=== PATIENT | female | born 1965 | race Caucasian/White ===

== ENCOUNTER 2017-03-08 10:25 | Emergency (ER) | payer MEDICARE ==
--- NOTE | 2017-03-08 10:58 | ER Document Report ---
ED Medical Screen (RME) - General Chief Complaint: Knee Pain Stated Complaint: KNEE PAIN/HEADACHE Time Seen by Provider: 03/08/17 10:40 Notes: Patient is a 51 year old female presenting to the ED for knee pain, migraine and chest pain. Patient fell out of her bed last week on Tuesday, Tuesday, and Tuesday because of night terrors. Patient fell the first time on her left knee and still has pain to this area. Patient has painful ambulation and is using a cane. Patient also has an ongoing issue with her left ankle. Patient also complains of a migraine for the last 2 days. Patient's migraine pain is to the left side but she has new numbness in the left side of her face. Patient also states she has had some chest pain last week which is also a new symptom for her. Patient took ibuprofen and aleve for her knee pain. I have greeted and performed a rapid initial assessment of this patient. A comprehensive ED assessment and evaluation of the patient, analysis of test results and completion of the medical decision making process will be conducted by additional ED providers. - Related Data Allergies/Adverse Reactions: acetaminophen [From Vicodin] Allergy (Verified 03/08/17 10:41) cephalexin [From Keflex] Allergy (Verified 03/08/17 10:30) rash Cephalosporins Allergy (Verified 03/08/17 10:41) divalproex sodium [From Depakote] Allergy (Verified 03/08/17 10:41) hydrocodone [From Vicodin] Allergy (Verified 03/08/17 10:41) propranolol [From Inderal LA] Allergy (Verified 03/08/17 10:41) sumatriptan [From Imitrex] Allergy (Verified 03/08/17 10:29) Tachycardia vancomycin Allergy (Verified 03/08/17 10:29) rash verapamil Allergy (Verified 03/08/17 10:41) Past Medical History - Social History Chew tobacco use (# tins/day): No Frequency of alcohol use: Rare Drug Abuse: Marijuana Renal/ Medical History: Denies: Hx Peritoneal Dialysis Physical Exam - Vital signs Vitals: Temp Pulse Resp BP Pulse Ox 97.9 F 96 18 132/85 H 96 03/08/17 10:30 03/08/17 10:30 03/08/17 10:30 03/08/17 10:30 03/08/17 10:30 - Notes Notes: GENERAL: Alert, wearing sunglasses, interacts well. No acute distress. LUNGS: No respiratory distress. HEART: Regular rate. ABDOMEN: Soft, non-tender. EXTREMITIES: Left knee is tender to palpation along the joint line and popliteal region. Course - Vital Signs Vital signs: Temp Pulse Resp BP Pulse Ox 97.9 F 96 18 132/85 H 96 03/08/17 10:30 03/08/17 10:30 03/08/17 10:30 03/08/17 10:30 03/08/17 10:30 - Laboratory Result Diagrams: 03/08/17 11:14 03/08/17 11:14 Laboratory results interpreted by me: 03/08/17 11:14 MCV 78 L MCH 25.1 L RDW 20.2 H Scribe Documentation - Scribe Written by Scribe:: Colby Padilla, 10:58 acting as scribe for :: Sruaj
[2017-03-08 11:34] LABS: ABSOLUTE EOSINOPHILS # (AUTO) 0.4 10^3/uL (0.0-0.6); ABSOLUTE LYMPHOCYTES (AUTO) 2.7 10^3/uL (0.5-4.7); ABSOLUTE MONOCYTES (AUTO) 0.5 10^3/uL (0.1-1.4); ABSOLUTE NEUT (AUTO) 4.9 10^3/uL (1.7-8.2); BASOPHILS % (AUTO) 0.6 % (0-2); EOSINOPHILS % (AUTO) 4.4 % (0-6); HEMATOCRIT 37.6 % (36.0-47.0); HEMOGLOBIN 12.2 g/dL (12.0-15.5); LYMPHOCYTES % (AUTO) 31.6 % (13-45); MEAN CORPUSCULAR HEMOGLOBIN 25.1 pg (27.0-33.4); MEAN CORPUSCULAR HGB CONC 32.3 g/dL (32.0-36.0); MEAN CORPUSCULAR VOLUME 78 fl (80-97); MONOCYTES % (AUTO) 5.6 % (3-13); RED BLOOD COUNT 4.85 10^6/uL (3.72-5.28); RED CELL DISTRIBUTION WIDTH 20.2 % (11.5-14.0); SEGMENTED NEUTROPHILS % (AUTO) 57.8 % (42-78); WHITE BLOOD COUNT 8.4 10^3/uL (4.0-10.5)
--- NOTE | 2017-03-08 11:40 | RADIOLOGY REPORT (SQ) ---
EXAM DESCRIPTION: CHEST PA/LAT COMPLETED DATE/TIME: 03/08/2017 11:33 am REASON FOR STUDY: CP COMPARISON: None. EXAM PARAMETERS: NUMBER OF VIEWS: two views TECHNIQUE: Digital Frontal and Lateral radiographic views of the chest acquired. RADIATION DOSE: NA LIMITATIONS: none FINDINGS: LUNGS AND PLEURA: No opacities, masses or pneumothorax. No pleural effusion. MEDIASTINUM AND HILAR STRUCTURES: No masses or contour abnormalities. HEART AND VASCULAR STRUCTURES: Heart normal size. No evidence for failure. BONES: No acute findings. HARDWARE: None in the chest. OTHER: No other significant finding. IMPRESSION: NO SIGNIFICANT RADIOGRAPHIC FINDING IN THE CHEST. TECHNICAL DOCUMENTATION: JOB ID: [id number] [employer]- All Rights Reserved
--- NOTE | 2017-03-08 11:41 | RADIOLOGY REPORT (SQ) ---
EXAM DESCRIPTION: KNEE LEFT 3 VIEWS COMPLETED DATE/TIME: 03/08/2017 11:33 am REASON FOR STUDY: Trauma with pain COMPARISON: None. NUMBER OF VIEWS: Three views. TECHNIQUE: AP, lateral, and sunrise patella radiographic images acquired of the left knee. LIMITATIONS: None. FINDINGS: MINERALIZATION: Normal. BONES: No acute fracture or dislocation. No worrisome bone lesions. JOINT: There is a small joint effusion. The joint spaces are normally maintained. SOFT TISSUES: No soft tissue swelling. No radio-opaque foreign body. OTHER: No other significant finding. IMPRESSION: There is a joint effusion with no fracture. If there is clinical concern for internal d erangement, consider MRI. TECHNICAL DOCUMENTATION: JOB ID: [id number] [employer]- All Rights Reserved
[2017-03-08] MEDS ORDERED: NORMAL SALINE 1000 ML 1,000 ML IV ONE (11:45)
[2017-03-08] MEDS ORDERED: PROCHLORPERAZINE EDISYLATE INJ 10 MG/2 ML VIAL IV ONE (11:46)
[2017-03-08] MEDS ORDERED: KETOROLAC TROMETHAMINE INJ/PF 30 MG/1 ML SDV IV ONE (11:46)
[2017-03-08] MEDS ORDERED: ONDANSETRON HCL INJ/PF 4 MG/2 ML SDV IV ONE (11:53)
[2017-03-08 11:54] LABS: ANION GAP 13 (5-19); BLOOD UREA NITROGEN 18 mg/dL (7-20); CALCIUM 10.2 mg/dL (8.4-10.2); CARBON DIOXIDE 26 mmol/L (22-30); CHLORIDE 104 mmol/L (98-107); CREATININE RESULT 0.84 mg/dL (0.52-1.25); GLUCOSE 92 mg/dL (75-110); POTASSIUM 4.4 mmol/L (3.6-5.0); SODIUM 143.1 mmol/L (137-145)
--- NOTE | 2017-03-08 12:15 | EKG REPORT ---
SEVERITY:- NORMAL ECG - SINUS RHYTHM : Confirmed by: Indy Muniz MD 08-Mar-2017 12:14:33
--- NOTE | 2017-03-08 13:24 | ER Document Report ---
ED Extremity Problem, Lower - General Chief Complaint: Knee Pain Stated Complaint: KNEE PAIN/HEADACHE Time Seen by Provider: 03/08/17 10:40 Mode of Arrival: Ambulatory Information source: Patient Notes: Patient is a 51-year-old female who presents to the ER today for left knee pain on a migraine headache 3 days. Patient states that she fell out of bed which occurs frequently for her for the past 25 years and hurt her left knee. She does not report how she fell. She did not have any numbness or tingling. She denies loss of consciousness. She denies hitting her head. She does have a history of migraines with Fioricet at home but has not been helping. - Related Data Allergies/Adverse Reactions: acetaminophen [From Vicodin] Allergy (Verified 03/08/17 10:41) cephalexin [From Keflex] Allergy (Verified 03/08/17 10:30) rash Cephalosporins Allergy (Verified 03/08/17 10:41) divalproex sodium [From Depakote] Allergy (Verified 03/08/17 10:41) hydrocodone [From Vicodin] Allergy (Verified 03/08/17 10:41) propranolol [From Inderal LA] Allergy (Verified 03/08/17 10:41) sumatriptan [From Imitrex] Allergy (Verified 03/08/17 10:29) Tachycardia vancomycin Allergy (Verified 03/08/17 10:29) rash verapamil Allergy (Verified 03/08/17 10:41) Past Medical History - General Information source: Patient - Social History Smoking Status: Current Every Day Smoker Chew tobacco use (# tins/day): No Frequency of alcohol use: Rare Drug Abuse: Marijuana Family History: Reviewed & Not Pertinent Patient has suicidal ideation: No Patient has homicidal ideation: No Renal/ Medical History: Denies: Hx Peritoneal Dialysis Review of Systems - Review of Systems Constitutional: No symptoms reported EENT: No symptoms reported Cardiovascular: No symptoms reported Respiratory: No symptoms reported Gastrointestinal: No symptoms reported Genitourinary: No symptoms reported Female Genitourinary: No symptoms reported Musculoskeletal: See HPI Skin: No symptoms reported Hematologic/Lymphatic: No symptoms reported Neurological/Psychological: See HPI Physical Exam - Vital signs Vitals: Temp Pulse Resp BP Pulse Ox 97.9 F 96 18 132/85 H 96 03/08/17 10:29 03/08/17 10:29 03/08/17 10:29 03/08/17 10:29 03/08/17 10:29 - Notes Notes: PHYSICAL EXAMINATION: GENERAL: Appears older than stated age, in no acute distress. HEAD: Atraumatic, normocephalic. EYES: Pupils equal round and reactive to light, extraocular movements intact, sclera anicteric, conjunctiva are normal. NECK: Normal range of motion, supple without lymphadenopathy LUNGS: CTAB and equal. No wheezes rales or rhonchi. HEART: Regular rate and rhythm without murmurs EXTREMITIES: medial and lateral left knee tenderness, normal varus and valgus stress testing, normal range of motion, no pitting edema. No cyanosis. NEUROLOGICAL: Cranial nerves grossly intact. Normal sensory/motor exams. PSYCH: Normal mood, normal affect. SKIN: Warm, Dry, normal turgor, no rashes or lesions noted Course - Re-evaluation Re-evalutation: 03/08/17 13:22 Patient lab work is unremarkable today. Left knee x-ray shows small joint effusion but no other abnormality or pathology. Patient placed in Konrad wrap and given Ortho information to follow-up. Patient's migraine is better with IV fluids, Compazine and Toradol. Patient did not tell me of any chest pain, she apparently told triage she was having chest pain, workup is negative today. EKG reveals a normal sinus rhythm at a rate of 84 bpm, chest x-ray normal, cardiac enzymes normal. - Vital Signs Vital signs: Temp Pulse Resp BP Pulse Ox 97.3 F 79 18 112/75 100 03/08/17 14:10 03/08/17 14:10 03/08/17 14:10 03/08/17 14:10 03/08/17 14:10 - Laboratory Result Diagrams: 03/08/17 11:14 03/08/17 11:14 Laboratory results interpreted by me: 03/08/17 11:14 MCV 78 L MCH 25.1 L RDW 20.2 H Discharge - Discharge Clinical Impression: Migraine Qualifiers: Migraine type: other Status migrainosus presence: without status migrainosus Intractability: not intractable Qualified Code(s): G43.809 - Other migraine, not intractable, without status migrainosus Left knee pain Qualifiers: Chronicity: acute Qualified Code(s): M25.562 - Pain in left knee Condition: Stable Disposition: HOME, SELF-CARE Instructions: Ice & Elevation ([facility]), Suspected Internal Knee Injury ([facility]) Additional Instructions: Return immediately for any new or worsening symptoms. Follow up with primary care provider, call tomorrow to make followup appointment. Referrals: JED BRADFORD MD [ACTIVE STAFF] - Follow up as needed
[2017-03-08] MEDS ORDERED: ACETAMINOPHEN WITH CODEINE #3 TABLET PO ONE (13:31)
[2017-03-08 14:14] VITALS: BP 112/75
== END 2017-03-08 14:15 | disposition home or self-care (01) ==
LOC: ER 10:25
DX: G43.809 Other migraine, not intractable, without status migrainosus (principal); M25.562 Pain in left knee; W19.XXXA Unspecified fall, initial encounter; F17.200 Nicotine dependence, unspecified, uncomplicated
CPT/HCPCS: 93005; 99284; 96374; 96375; 36415; 85025; 80048; 84484; 71020; 73562; 93010; A9270; J1885; J0780; J2405; J7030

== ENCOUNTER 2017-04-07 03:13 | Emergency (ER) | payer OTHER, MEDICARE ==
[2017-04-07 03:25] VITALS: BP 143/94
[2017-04-07 04:43] LABS: APPEARANCE,URINE CLEAR; BILIRUBIN,URINE NEGATIVE (NEGATIVE); GLUCOSE, URINE NEGATIVE (NEGATIVE); KETONES,URINE NEGATIVE (NEGATIVE); LEUKOCYTE ESTERASE,URINE NEGATIVE (NEGATIVE); NITRITE,URINE NEGATIVE (NEGATIVE); PROTEIN,URINE NEGATIVE (NEGATIVE); URINE SPECIFIC GRAVITY 1.004; UROBILINOGEN,URINE NEGATIVE mg/dL (<2.0)
[2017-04-07 04:51] LABS: ABSOLUTE EOSINOPHILS # (AUTO) 0.5 10^3/uL (0.0-0.6); ABSOLUTE MONOCYTES (AUTO) 0.6 10^3/uL (0.1-1.4); ABSOLUTE NEUT (AUTO) 7.5 10^3/uL (1.7-8.2); BASOPHILS % (AUTO) 0.3 % (0-2); EOSINOPHILS % (AUTO) 3.6 % (0-6); HEMATOCRIT 39.1 % (36.0-47.0); HEMOGLOBIN 12.6 g/dL (12.0-15.5); HGB HCT DIFFERENCE -1.3; MEAN CORPUSCULAR HEMOGLOBIN 25.6 pg (27.0-33.4); MEAN CORPUSCULAR HGB CONC 32.2 g/dL (32.0-36.0); MEAN CORPUSCULAR VOLUME 79 fl (80-97); MONOCYTES % (AUTO) 4.8 % (3-13); RED BLOOD COUNT 4.93 10^6/uL (3.72-5.28); RED CELL DISTRIBUTION WIDTH 18.7 % (11.5-14.0); SEGMENTED NEUTROPHILS % (AUTO) 59.3 % (42-78); WHITE BLOOD COUNT 12.6 10^3/uL (4.0-10.5)
[2017-04-07 04:57] LABS: ALANINE AMINOTRANSFERASE 23 U/L (9-52); ALBUMIN 4.6 g/dL (3.5-5.0); ALKALINE PHOSPHATASE 104 U/L (38-126); ANION GAP 13 (5-19); ASPARTATE AMINO TRANSFERASE 17 U/L (14-36); BILIRUBIN,DIRECT 0.3 mg/dL (0.0-0.4); BILIRUBIN,TOTAL 0.3 mg/dL (0.2-1.3); BLOOD UREA NITROGEN 17 mg/dL (7-20); CALCIUM 10.3 mg/dL (8.4-10.2); CARBON DIOXIDE 22 mmol/L (22-30); CHLORIDE 107 mmol/L (98-107); CREATININE RESULT 0.98 mg/dL (0.52-1.25); GLUCOSE 95 mg/dL (75-110); LIPASE 134.5 U/L (23-300); SODIUM 141.9 mmol/L (137-145); TOTAL PROTEIN 7.6 g/dL (6.3-8.2)
== END 2017-04-07 05:40 | disposition left against medical advice (07) ==
LOC: ER 03:13
DX: Z53.9 Procedure and treatment not carried out, unspecified reason (principal); R10.9 Unspecified abdominal pain
CPT/HCPCS: 36415; 80053; 81001; 83690; 85025

== ENCOUNTER 2017-05-10 16:18 | Emergency (ER) | payer OTHER, MEDICARE ==
--- NOTE | 2017-05-10 16:56 | ER Document Report ---
ED Medical Screen (RME) - General Chief Complaint: Neck Problem Stated Complaint: FALL/NECK PAIN Time Seen by Provider: 05/10/17 16:53 Notes: Patient states she has a history of having nightmares and falling out of bed. She states 5 days ago she fell out of bed and hit her neck and since that time has had chronic neck pain. She is unsure if she hit her head or had any loss of consciousness. However since the fall she is also been dizzy and losing her balance. She has had several falls since the above fall where she hurt her neck. No vomiting or diarrhea. Patient went to the [facility] today and was referred here to our emergency department. TRAVEL OUTSIDE OF THE [place] IN LAST 30 DAYS: No - Related Data Allergies/Adverse Reactions: acetaminophen [From Vicodin] Allergy (Verified 05/10/17 16:21) cephalexin [From Keflex] Allergy (Verified 05/10/17 16:21) rash Cephalosporins Allergy (Verified 05/10/17 16:21) divalproex sodium [From Depakote] Allergy (Verified 05/10/17 16:21) hydrocodone [From Vicodin] Allergy (Verified 05/10/17 16:21) propranolol [From Inderal LA] Allergy (Verified 05/10/17 16:21) sumatriptan [From Imitrex] Allergy (Verified 05/10/17 16:21) Tachycardia vancomycin Allergy (Verified 05/10/17 16:21) rash verapamil Allergy (Verified 05/10/17 16:21) Past Medical History Renal/ Medical History: Denies: Hx Peritoneal Dialysis Physical Exam - Vital signs Vitals: Temp Pulse Resp BP Pulse Ox 97.8 F 98 18 107/73 98 05/10/17 16:22 05/10/17 16:22 05/10/17 16:22 05/10/17 16:22 05/10/17 16:22 Course - Vital Signs Vital signs: Temp Pulse Resp BP Pulse Ox 97.8 F 98 18 107/73 98 05/10/17 16:22 05/10/17 16:22 05/10/17 16:22 05/10/17 16:22 05/10/17 16:22
[2017-05-10 17:44] LABS: ABSOLUTE BASOPHILS # (AUTO) 0.1 10^3/uL (0.0-0.2); ABSOLUTE EOSINOPHILS # (AUTO) 0.3 10^3/uL (0.0-0.6); ABSOLUTE LYMPHOCYTES (AUTO) 2.5 10^3/uL (0.5-4.7); ABSOLUTE MONOCYTES (AUTO) 0.7 10^3/uL (0.1-1.4); ABSOLUTE NEUT (AUTO) 7.5 10^3/uL (1.7-8.2); BASOPHILS % (AUTO) 0.6 % (0-2); EOSINOPHILS % (AUTO) 2.4 % (0-6); HEMATOCRIT 33.9 % (36.0-47.0); HEMOGLOBIN 11.1 g/dL (12.0-15.5); HGB HCT DIFFERENCE -0.6; MEAN CORPUSCULAR HEMOGLOBIN 25.8 pg (27.0-33.4); MEAN CORPUSCULAR HGB CONC 32.6 g/dL (32.0-36.0); MEAN CORPUSCULAR VOLUME 79 fl (80-97); MONOCYTES % (AUTO) 6.2 % (3-13); RED BLOOD COUNT 4.29 10^6/uL (3.72-5.28); RED CELL DISTRIBUTION WIDTH 18.4 % (11.5-14.0); SEGMENTED NEUTROPHILS % (AUTO) 67.8 % (42-78)
--- NOTE | 2017-05-10 18:03 | RADIOLOGY REPORT (SQ) ---
EXAM DESCRIPTION: CT CERVICAL SPINE WITHOUT COMPLETED DATE/TIME: 05/10/2017 5:53 pm REASON FOR STUDY: dizzy/uncoordinated COMPARISON: None. TECHNIQUE: Axial images acquired through the cervical spine without intravenous contrast. Images re viewed with lung, soft tissue and bone windows. Reconstructed coronal and sagittal MPR images review ed. Images stored on PACS. All CT scanners at this facility use dose modulation, iterative reconstruction, and/or weight based d osing when appropriate to reduce radiation dose to as low as reasonably achievable (ALARA). [facility]: Dose Right [facility]: CareDose [facility]: Dose Right [facility]: Teradose 4D [facility]: Smart [employer] RADIATION DOSE: Up-to-date CT equipment and radiation dose reduction techniques were employed. CTDIv ol: 17.3 mGy. DLP: 370 mGy-cm. mGy. LIMITATIONS: None. FINDINGS: ALIGNMENT: There is straightening of the normal cervical lordosis. There is slight retrol isthesis of C5 on C6. MINERALIZATION: Normal. VERTEBRAL BODIES: No fractures or dislocation. DISCS: There is multilevel disc space narrowing. FACETS, LATERAL MASSES, POSTERIOR ELEMENTS: No fractures. No dislocation. No acute findings. HARDWARE: None in the spine. VISUALIZED RIBS: No fractures. LUNG APICES AND SOFT TISSUES: There is bilateral upper lobe airspace disease suspicious for pneumonia . OTHER: No other significant finding. IMPRESSION: 1. Mild multilevel spondylosis. 2. Upper lobe infiltrate consistent with pneumonia. TECHNICAL DOCUMENTATION: JOB ID: [id number] Quality ID # [id number]: Final reports with documentation of one or more dose reduction techniques (e.g., Au tomated exposure control, adjustment of the mA and/or kV according to patient size, use of iterative reconstruction technique) 2010 [employer]- All Rights Reserved
--- NOTE | 2017-05-10 18:06 | RADIOLOGY REPORT (SQ) ---
EXAM DESCRIPTION: CT HEAD WITHOUT COMPLETED DATE/TIME: 05/10/2017 5:53 pm REASON FOR STUDY: dizzy/uncoordinated COMPARISON: None. TECHNIQUE: Axial images acquired through the brain without intravenous contrast. Images reviewed wi th bone, brain and subdural windows. Images stored on PACS. All CT scanners at this facility use dose modulation, iterative reconstruction, and/or weight based d osing when appropriate to reduce radiation dose to as low as reasonably achievable (ALARA). [facility]: Dose Right [facility]: CareDose [facility]: Dose Right [facility]: Teradose 4D [facility]: Smart [employer] RADIATION DOSE: Up-to-date CT equipment and radiation dose reduction techniques were employed. CTDIv ol: 64.6 mGy. DLP: 1034 mGy-cm. mGy. LIMITATIONS: None. FINDINGS: VENTRICLES: Normal size and contour. CEREBRUM: No masses. No hemorrhage. No midline shift. Normal can/white matter differentiation. N o evidence for acute infarction. CEREBELLUM: No masses. No hemorrhage. No alteration of density. No evidence for acute infarction. EXTRAAXIAL SPACES: No fluid collections. No masses. ORBITS AND GLOBE: No intra- or extraconal masses. Normal contour of globe without masses. CALVARIUM: No fracture. PARANASAL SINUSES: No fluid or mucosal thickening. SOFT TISSUES: No mass or hematoma. OTHER: No other significant finding. IMPRESSION: NORMAL BRAIN CT WITHOUT CONTRAST. TECHNICAL DOCUMENTATION: JOB ID: [id number] Quality ID # [id number]: Final reports with documentation of one or more dose reduction techniques (e.g., Au tomated exposure control, adjustment of the mA and/or kV according to patient size, use of iterative reconstruction technique) 2010 [employer]- All Rights Reserved
[2017-05-10 18:12] LABS: APPEARANCE,URINE CLEAR; BILIRUBIN,URINE NEGATIVE (NEGATIVE); GLUCOSE, URINE NEGATIVE (NEGATIVE); KETONES,URINE NEGATIVE (NEGATIVE); LEUKOCYTE ESTERASE,URINE NEGATIVE (NEGATIVE); NITRITE,URINE NEGATIVE (NEGATIVE); PROTEIN,URINE NEGATIVE (NEGATIVE); URINE SPECIFIC GRAVITY 1.008; UROBILINOGEN,URINE NEGATIVE mg/dL (<2.0)
[2017-05-10 18:20] LABS: ALANINE AMINOTRANSFERASE 40 U/L (9-52); ALKALINE PHOSPHATASE 98 U/L (38-126); ANION GAP 11 (5-19); ASPARTATE AMINO TRANSFERASE 41 U/L (14-36); BILIRUBIN,DIRECT 0.3 mg/dL (0.0-0.4); BILIRUBIN,TOTAL 0.3 mg/dL (0.2-1.3); BLOOD UREA NITROGEN 11 mg/dL (7-20); CALCIUM 9.5 mg/dL (8.4-10.2); CARBON DIOXIDE 25 mmol/L (22-30); CHLORIDE 105 mmol/L (98-107); CREATININE RESULT 0.77 mg/dL (0.52-1.25); GLUCOSE 69 mg/dL (75-110); POTASSIUM 4.5 mmol/L (3.6-5.0); SODIUM 140.9 mmol/L (137-145); TOTAL PROTEIN 6.9 g/dL (6.3-8.2)
[2017-05-10 18:21] LABS: ALCOHOL < 10 mg/dL (NONE DETECTED)
[2017-05-10 18:29] LABS: URINE BARBITURATES SCREEN UNCONFIRMED POSITIVE; URINE METHADONE SCREEN NEGATIVE; URINE OPIATES LOW NEGATIVE; URINE PHENCYCLIDINE SCREEN NEGATIVE
--- NOTE | 2017-05-10 18:39 | ER Document Report ---
ED Neck/Back Problem - General Mode of Arrival: Ambulatory Information source: Patient TRAVEL OUTSIDE OF THE [place] IN LAST 30 DAYS: No <SANTI OCONNOR - Last Filed: 05/10/17 21:28> <SRAVAN THOMPSON - Last Filed: 05/10/17 23:17> - General Chief Complaint: Neck Problem Stated Complaint: FALL/NECK PAIN Time Seen by Provider: 05/10/17 16:53 Notes: Patient is a 52-year-old female who presents to the emergency department today with complaints of neck pain. Patient states she has frequent nightmares. Patient states she had a nightmare and she fell out of bed. Patient complains of neck pain which she has had for the last five days. (SANTI OCONNOR) - Related Data Allergies/Adverse Reactions: acetaminophen [From Vicodin] Allergy (Verified 05/10/17 16:21) cephalexin [From Keflex] Allergy (Verified 05/10/17 16:21) rash Cephalosporins Allergy (Verified 05/10/17 16:21) divalproex sodium [From Depakote] Allergy (Verified 05/10/17 16:21) hydrocodone [From Vicodin] Allergy (Verified 05/10/17 16:21) propranolol [From Inderal LA] Allergy (Verified 05/10/17 16:21) sumatriptan [From Imitrex] Allergy (Verified 05/10/17 16:21) Tachycardia vancomycin Allergy (Verified 05/10/17 16:21) rash verapamil Allergy (Verified 05/10/17 16:21) Past Medical History - Social History Family History: Reviewed & Not Pertinent Patient has suicidal ideation: No Renal/ Medical History: Denies: Hx Peritoneal Dialysis <SANTI OCONNOR - Last Filed: 05/10/17 21:28> - Social History Smoking Status: Unknown if Ever Smoked <SRAVAN THOMPSON - Last Filed: 05/10/17 23:17> Review of Systems - Review of Systems Constitutional: No symptoms reported EENT: No symptoms reported Cardiovascular: No symptoms reported Respiratory: No symptoms reported Gastrointestinal: No symptoms reported Genitourinary: No symptoms reported Female Genitourinary: No symptoms reported Musculoskeletal: See HPI, Neck pain Skin: No symptoms reported Hematologic/Lymphatic: No symptoms reported Neurological/Psychological: No symptoms reported -: Yes All other systems reviewed and negative <SANTI OCONNOR - Last Filed: 05/10/17 21:28> Physical Exam <SANTI OCONNOR - Last Filed: 05/10/17 21:28> <SRAVAN THOMPSON - Last Filed: 05/10/17 23:17> - Vital signs Vitals: Temp Pulse Resp BP Pulse Ox 97.8 F 98 18 107/73 98 05/10/17 16:22 05/10/17 16:22 05/10/17 16:22 05/10/17 16:22 05/10/17 16:22 - Notes Notes: Physical Exam: General: Alert, appears well. HEENT: Normocephalic. Atraumatic. PERRL. Extraocular movements intact. Oropharynx clear. Neck: In c-collar. C-collar removed revealing paraspinal tenderness with palpation C5-C7. Respiratory: No respiratory distress. Clear and equal breath sounds bilaterally. Cardiovascular: Regular rate and rhythm. Abdominal: Normal Inspection. Non-tender. No distension. Normal Bowel Sounds. Back: Non-tender. No deformity or step off. Extremities: Moves all four extremities. Upper extremities: Normal inspection. Normal ROM. Lower extremities: Normal inspection. No edema. Normal ROM. Neurological: Normal cognition. AAOx4. Normal speech. Strength 5/5. Psychological: Normal affect. Normal Mood. Skin: Warm. Dry. Normal color. (SANTI OCONNOR) Course - Laboratory Result Diagrams: 05/10/17 17:08 05/10/17 17:08 <SANTI OCONNOR - Last Filed: 05/10/17 21:28> - Laboratory Result Diagrams: 05/10/17 17:08 05/10/17 17:08 - Diagnostic Test Radiology reviewed: Reports reviewed <SRAVAN THOMPSON - Last Filed: 05/10/17 23:17> - Re-evaluation Re-evalutation: 05/10/17 19:17 Patient does not have any neurologic deficits. Patient fell and hurt her neck and [facility] and C-spine with no acute findings except for a possible pneumonia. Patient clinically does not sound like she has pneumonia and chest x-ray does not show any evidence for such. Patient will be discharged home with pain medication and [facility]. Otherwise stable for discharge. No complaints. Grateful for care. (SRAVAN THOMPSON) - Vital Signs Vital signs: Temp Pulse Resp BP Pulse Ox 97.6 F 90 18 112/70 98 05/10/17 19:28 05/10/17 19:28 05/10/17 19:28 05/10/17 19:28 05/10/17 16:22 - Laboratory Laboratory results interpreted by me: 05/10/17 05/10/17 17:08 17:08 WBC 11.0 H Hgb 11.1 L Hct 33.9 L MCV 79 L MCH 25.8 L RDW 18.4 H Plt Count 468 H Glucose 69 L AST 41 H Discharge <SANTI OCONNOR - Last Filed: 05/10/17 21:28> <SRAVAN THOMPSON - Last Filed: 05/10/17 23:17> - Discharge Clinical Impression: Neck pain Cervical strain, acute Qualifiers: Encounter type: initial encounter Qualified Code(s): S16.1XXA - Strain of muscle, fascia and tendon at neck level, initial encounter Condition: Stable Disposition: HOME, SELF-CARE Instructions: Neck Injury (Cervical Strain) ([facility]) Additional Instructions: Please follow-up with your doctor this week. Please return if you have any further concerns. Prescriptions: Oxycodone HCl/Acetaminophen [Percocet 5-325 mg Tablet] 1 tab PO BIDP PRN #14 tablet PRN Reason: Scribe Attestation: 05/10/17 23:16 I personally performed the services described in the documentation, reviewed and edited the documentation which was dictated to the scribe in my presence, and it accurately records my words and actions. (SRAVAN THOMPSON) Scribe Documentation - Scribe Written by Colby:: Colby Perkins, [id number] acting as scribe for :: Ed <SANTI OCONNOR - Last Filed: 05/10/17 21:28>
--- NOTE | 2017-05-10 18:53 | RADIOLOGY REPORT (SQ) ---
EXAM DESCRIPTION: CHEST SINGLE VIEW COMPLETED DATE/TIME: 05/10/2017 6:45 pm REASON FOR STUDY: evaluate for pneumonia COMPARISON: 03/08/2017 EXAM PARAMETERS: NUMBER OF VIEWS: One view. TECHNIQUE: Single frontal radiographic view of the chest acquired. RADIATION DOSE: NA LIMITATIONS: None. FINDINGS: LUNGS AND PLEURA: No opacities, masses or pneumothorax. No pleural effusion. MEDIASTINUM AND HILAR STRUCTURES: No masses. Contour normal. HEART AND VASCULAR STRUCTURES: Heart normal in size. Normal vasculature. BONES: There several healed rib fractures on the right. HARDWARE: None in the chest. OTHER: No other significant finding. IMPRESSION: NO ACUTE RADIOGRAPHIC FINDING IN THE CHEST. TECHNICAL DOCUMENTATION: JOB ID: [id number]
[2017-05-10 19:29] VITALS: BP 112/70
== END 2017-05-10 19:28 | disposition home or self-care (01) ==
LOC: ER 16:18
DX: S16.1XXA Strain of muscle, fascia and tendon at neck level, initial encounter (principal); W06.XXXA Fall from bed, initial encounter; Z88.6 Allergy status to analgesic agent; Z88.3 Allergy status to other anti-infective agents
CPT/HCPCS: 99284; 36415; 80307 ×2; 85025; 80053; 81001; 71010; 70450; 72125; L0120

== ENCOUNTER 2017-05-30 16:21 | Emergency (ER) | payer OTHER, MEDICARE ==
[2017-05-30] MEDS ORDERED: PANTOPRAZOLE SODIUM 40 MG VIAL IV ONE (17:13)
[2017-05-30] MEDS ORDERED: NORMAL SALINE 1000 ML 1,000 ML IV PRN (17:13)
--- NOTE | 2017-05-30 17:14 | ER Document Report ---
ED Medical Screen (RME) - General Chief Complaint: Abdominal Pain Stated Complaint: LOSS OF APPETITE Time Seen by Provider: 05/30/17 17:13 Notes: Patient states she has had 5 days of increasing epigastric pain as well as vomiting of coffee-ground looking material. She states she has never had a similar episode in the past. She denies any recent new medications. She states she does feel weak. She denies any problems with bowel movements or urination. TRAVEL OUTSIDE OF THE [place] IN LAST 30 DAYS: No - Related Data Allergies/Adverse Reactions: acetaminophen [From Vicodin] Allergy (Verified 05/30/17 16:38) cephalexin [From Keflex] Allergy (Verified 05/30/17 16:38) rash Cephalosporins Allergy (Verified 05/30/17 16:38) divalproex sodium [From Depakote] Allergy (Verified 05/30/17 16:38) hydrocodone [From Vicodin] Allergy (Verified 05/30/17 16:38) propranolol [From Inderal LA] Allergy (Verified 05/30/17 16:38) sumatriptan [From Imitrex] Allergy (Verified 05/30/17 16:38) Tachycardia vancomycin Allergy (Verified 05/30/17 16:38) rash verapamil Allergy (Verified 05/30/17 16:38) Past Medical History Renal/ Medical History: Denies: Hx Peritoneal Dialysis Physical Exam - Vital signs Vitals: Temp Pulse Resp BP Pulse Ox 97.6 F 125 H 20 141/103 H 96 05/30/17 16:39 05/30/17 16:39 05/30/17 16:39 05/30/17 16:39 05/30/17 16:39 Course - Vital Signs Vital signs: Temp Pulse Resp BP Pulse Ox 97.6 F 125 H 20 141/103 H 96 05/30/17 16:39 05/30/17 16:39 05/30/17 16:39 05/30/17 16:39 05/30/17 16:39
[2017-05-30 17:45] LABS: ABSOLUTE BASOPHILS # (AUTO) 0.1 10^3/uL (0.0-0.2); ABSOLUTE EOSINOPHILS # (AUTO) 0.2 10^3/uL (0.0-0.6); ABSOLUTE LYMPHOCYTES (AUTO) 1.7 10^3/uL (0.5-4.7); ABSOLUTE MONOCYTES (AUTO) 0.9 10^3/uL (0.1-1.4); ABSOLUTE NEUT (AUTO) 13.2 10^3/uL (1.7-8.2); BASOPHILS % (AUTO) 0.5 % (0-2); EOSINOPHILS % (AUTO) 1.3 % (0-6); HEMATOCRIT 46.9 % (36.0-47.0); HEMOGLOBIN 15.1 g/dL (12.0-15.5); HGB HCT DIFFERENCE -1.6; LYMPHOCYTES % (AUTO) 10.5 % (13-45); MEAN CORPUSCULAR HEMOGLOBIN 25.9 pg (27.0-33.4); MEAN CORPUSCULAR HGB CONC 32.2 g/dL (32.0-36.0); MEAN CORPUSCULAR VOLUME 81 fl (80-97); MONOCYTES % (AUTO) 5.4 % (3-13); RED BLOOD COUNT 5.83 10^6/uL (3.72-5.28); RED CELL DISTRIBUTION WIDTH 18.3 % (11.5-14.0); SEGMENTED NEUTROPHILS % (AUTO) 82.3 % (42-78); WHITE BLOOD COUNT 16.1 10^3/uL (4.0-10.5)
[2017-05-30 18:00] LABS: ALANINE AMINOTRANSFERASE 53 U/L (9-52); ALBUMIN 5.2 g/dL (3.5-5.0); ALKALINE PHOSPHATASE 137 U/L (38-126); ANION GAP 16 (5-19); ASPARTATE AMINO TRANSFERASE 55 U/L (14-36); BILIRUBIN,DIRECT 0.5 mg/dL (0.0-0.4); BILIRUBIN,TOTAL 0.6 mg/dL (0.2-1.3); BLOOD UREA NITROGEN 17 mg/dL (7-20); CALCIUM 11.1 mg/dL (8.4-10.2); CARBON DIOXIDE 25 mmol/L (22-30); CHLORIDE 104 mmol/L (98-107); CREATININE RESULT 0.77 mg/dL (0.52-1.25); GLUCOSE 94 mg/dL (75-110); LIPASE 96.9 U/L (23-300); POTASSIUM 4.2 mmol/L (3.6-5.0); SODIUM 145.1 mmol/L (137-145); TOTAL PROTEIN 9.1 g/dL (6.3-8.2)
[2017-05-30] MEDS ORDERED: ONDANSETRON HCL INJ/PF 4 MG/2 ML SDV IV ONE (18:19)
--- NOTE | 2017-05-30 18:24 | ER Document Report ---
HPI - HPI Patient complains to provider of: Vomiting Onset: Other - 3-4 days Onset/Duration: Gradual, Constant Quality of pain: Cramping Pain Level: 3 Associated Symptoms: Vomiting Exacerbated by: Denies Relieved by: Denies Similar symptoms previously: No Recently seen / treated by doctor: No Notes: Patient is a 52-year-old female who is recently moved to this area. Patient presents with several days of vomiting which she believes contains coffee grounds emesis. No dark tarry stools. No fevers or chills. States she has a decreased appetite. Denies alcohol use, denies excessive NSAID use. Patient does not have a local physician. - ROS ROS below otherwise negative: Yes - CONSTITUTIONAL Constitutional: DENIES: Fever, Chills - CARDIOVASCULAR Cardiovascular: DENIES: Chest pain - GASTROINTESTINAL Gastrointestinal: REPORTS: Abdominal Pain, Nausea, Patient vomiting - URINARY Urinary: DENIES: Dysuria, Urgency, Frequency - DERM Skin Color: Normal Past Medical History - General Information source: Patient - Social History Smoking Status: Current Some Day Smoker Chew tobacco use (# tins/day): No Frequency of alcohol use: None Drug Abuse: None Family History: Reviewed & Not Pertinent Renal/ Medical History: Denies: Hx Peritoneal Dialysis Surgical Hx: Negative - Immunizations Hx Diphtheria, Pertussis, Tetanus Vaccination: Yes Vertical Provider Document - CONSTITUTIONAL Agree With Documented VS: Yes Exam Limitations: No Limitations - INFECTION CONTROL TRAVEL OUTSIDE OF THE [place] IN LAST 30 DAYS: No - HEENT HEENT: Atraumatic, Normocephalic - NECK Neck: Normal Inspection - RESPIRATORY Respiratory: Breath Sounds Normal O2 Sat by Pulse Oximetry: 96 - GI/ABDOMEN Gastrointestinal: Abdomen Soft, Abdomen Non-Tender, Normal Bowel Sounds. negative: Abdominal Guarding, Abdominal Rebound - BACK Back: Normal Inspection - MUSCULOSKELETAL/EXTREMETIES Musculoskeletal/Extremeties: MAEW, FROM, Non-Tender - NEURO Level of Consciousness: Awake, Alert, Appropriate Motor/Sensory: No Motor Deficit, No Sensory Deficit - DERM Integumentary: Warm, Dry, No Rash Course - Re-evaluation Re-evalutation: 05/30/17 18:22 Labs reviewed and discussed with patient. Need for gastroenterology follow-up discussed. Need to avoid alcohol and NSAIDs. Use of xwim-jrw-jsmgiuv PPI such as omeprazole or Nexium. Will discharge with Zofran for nausea. Patient will return if symptoms worsen or for any other problems. - Vital Signs Vital signs: Temp Pulse Resp BP Pulse Ox 97.6 F 125 H 20 141/103 H 96 05/30/17 16:39 05/30/17 16:39 05/30/17 16:39 05/30/17 16:39 05/30/17 16:39 - Laboratory Result Diagrams: 05/30/17 17:35 05/30/17 17:35 Laboratory results interpreted by me: 05/30/17 05/30/17 17:35 17:35 WBC 16.1 H RBC 5.83 H MCH 25.9 L RDW 18.3 H Seg Neutrophils % 82.3 H Lymphocytes % 10.5 L Absolute Neutrophils 13.2 H Sodium 145.1 H Calcium 11.1 H Direct Bilirubin 0.5 H AST 55 H ALT 53 H Alkaline Phosphatase 137 H Total Protein 9.1 H Albumin 5.2 H Discharge - Discharge Clinical Impression: Vomiting Condition: Good Disposition: HOME, SELF-CARE Instructions: Vomiting ([facility]), Abdominal Pain ([facility]) Additional Instructions: Use hhpo-meb-pgyqzqe medications such as omeprazole or Nexium to help control your stomach acid. Follow-up with gastroenterology. Prescriptions: Ondansetron [Zofran Odt 4 mg Tablet] 1 - 2 tab PO Q4H PRN #15 tab.rapdis PRN Reason: For Nausea/Vomiting Referrals: MADDI HAQ MD [ACTIVE STAFF] - Follow up as needed PORSHA LOMAX MD [ACTIVE STAFF] - Follow up as needed
[2017-05-30 18:50] VITALS: BP 132/87
== END 2017-05-30 19:05 | disposition home or self-care (01) ==
LOC: ER 16:21
DX: R11.2 Nausea with vomiting, unspecified (principal); R63.0 Anorexia; R10.9 Unspecified abdominal pain; F17.200 Nicotine dependence, unspecified, uncomplicated
CPT/HCPCS: 99284; 96374; 96375; 36415; 83690; 85025; 80053; S0164; J2405; J7030

== ENCOUNTER 2017-07-07 18:32 | Emergency (ER) | payer OTHER, MEDICARE ==
[2017-07-07] MEDS ORDERED: ONDANSETRON HCL INJ/PF 4 MG/2 ML SDV IV ONE (19:26)
[2017-07-07] MEDS ORDERED: NORMAL SALINE 1000 ML 1,000 ML IV ONE (19:27)
--- NOTE | 2017-07-07 19:31 | ER Document Report ---
ED GI/ - General Chief Complaint: hematemesis Stated Complaint: VOMITING BLOOD Time Seen by Provider: 07/07/17 19:17 Notes: Patient is a 52-year-old female comes emergency department for chief complaint of generalized abdominal pain and also vomiting for 3 days, she states that since yesterday she has had blood mixed in her vomit, she states that she has vomited 3 times today. She states she had one bowel movement earlier today, nonbloody. She states she feels worse when she tries to eat. She denies chest pain, shortness of breath, dysuria, flank pain, vaginal bleeding or discharge. She reports a history of hernia repair, , she is on Prilosec, she is also on Risperdal. [facility]. She states earlier in the year she had a colonoscopy and endoscopy and "they couldn't find anything wrong". TRAVEL OUTSIDE OF THE [place] IN LAST 30 DAYS: No - Related Data Allergies/Adverse Reactions: acetaminophen [From Vicodin] Allergy (Verified 05/30/17 16:38) cephalexin [From Keflex] Allergy (Verified 05/30/17 16:38) rash Cephalosporins Allergy (Verified 05/30/17 16:38) divalproex sodium [From Depakote] Allergy (Verified 05/30/17 16:38) hydrocodone [From Vicodin] Allergy (Verified 05/30/17 16:38) propranolol [From Inderal LA] Allergy (Verified 05/30/17 16:38) sumatriptan [From Imitrex] Allergy (Verified 05/30/17 16:38) Tachycardia vancomycin Allergy (Verified 05/30/17 16:38) rash verapamil Allergy (Verified 05/30/17 16:38) Past Medical History - General Information source: Patient - Social History Smoking Status: Never Smoker Frequency of alcohol use: Occasional Drug Abuse: None Lives with: Family Family History: Reviewed & Not Pertinent Patient has suicidal ideation: No Patient has homicidal ideation: No Renal/ Medical History: Denies: Hx Peritoneal Dialysis GI Medical History: Reports: Hx Gastroesophageal Reflux Disease Psychiatric Medical History: Reports: Hx Anxiety, Hx Depression Past Surgical History: Reports: Hx Section - Immunizations Hx Diphtheria, Pertussis, Tetanus Vaccination: Yes Review of Systems - Review of Systems Constitutional: No symptoms reported EENT: No symptoms reported Cardiovascular: No symptoms reported Respiratory: No symptoms reported Gastrointestinal: See HPI Genitourinary: No symptoms reported Female Genitourinary: No symptoms reported Musculoskeletal: No symptoms reported Skin: No symptoms reported Hematologic/Lymphatic: No symptoms reported Neurological/Psychological: No symptoms reported Physical Exam - Vital signs Vitals: Temp Pulse Resp BP Pulse Ox 98.5 F 110 H 16 129/86 H 96 07/07/17 18:37 07/07/17 18:37 07/07/17 18:37 07/07/17 18:37 07/07/17 18:37 Interpretation: Normal - General General appearance: Appears well, Alert In distress: None - HEENT Head: Normocephalic, Atraumatic Eyes: Normal Pupils: PERRL - Respiratory Respiratory status: No respiratory distress Chest status: Nontender Breath sounds: Normal Chest palpation: Normal - Cardiovascular Rhythm: Regular Heart sounds: Normal auscultation Murmur: No - Abdominal Inspection: Normal Distension: No distension Bowel sounds: Normal Tenderness: Nontender. No: Tender, Guarding Organomegaly: No organomegaly - Back Back: Normal, Nontender - Extremities General upper extremity: Normal inspection, Nontender, Normal color, Normal ROM , Normal temperature General lower extremity: Normal inspection, Nontender, Normal color, Normal ROM , Normal temperature, Normal weight bearing. No: Adam's sign - Neurological Neuro grossly intact: Yes Cognition: Normal Orientation: AAOx4 [place] Coma Scale Eye Opening: Spontaneous [place] Coma Scale Verbal: Oriented [place] Coma Scale Motor: Obeys Commands Etienne Coma Scale Total: 15 Speech: Normal Motor strength normal: LUE, RUE, LLE, RLE Sensory: Normal - Psychological Associated symptoms: Normal affect, Normal mood - Skin Skin Temperature: Warm Skin Moisture: Dry Skin Color: Normal Course - Re-evaluation Re-evalutation: Patient is well-appearing and alert. She does have dry mucous membranes, mild tachycardia. Abdomen is completely benign and nontender. Given IV fluids, nausea medication, GI cocktail. CBC, chemistry generally unremarkable with minimally low bicarbonate and mild thrombocytosis. Nonspecific. I recommended a rectal examination because patient reported that she has been vomiting blood since yesterday and I would expect positive Hemoccult by now, patient refuses. She states that she might provide a sample of stool. Patient given GI cocktail. Fluids. She kept this down without any difficulty. I reevaluated patient again, nurse told me that patient was telling the nurse that she was angry because she had not received any real pain medication for her symptoms, I asked patient if she needed anything and she states "no I am leaving, I am not giving any more samples and I am leaving now". Patient refusing urine and stool samples. Patient had resolution of tachycardia, after she got worked up only mild tachycardia present, soft abdomen, unremarkable workup. I did discuss what I recommended for patient, treatment at home, follow -up and return recommendations. Patient nodded. Asked if she had any questions for me and she shook her head no. Asked her son if he had any questions or concerns and he said no. Patient discharged. - Vital Signs Vital signs: Temp Pulse Resp BP Pulse Ox 98.5 F 110 H 19 137/89 H 98 07/07/17 18:37 07/07/17 18:37 07/07/17 22:00 07/07/17 21:01 07/07/17 22:15 - Laboratory Result Diagrams: 07/07/17 20:00 07/07/17 20:00 Laboratory results interpreted by me: 07/07/17 07/07/17 20:00 20:00 MCH 26.1 L RDW 17.5 H Plt Count 528 H Chloride 110 H Carbon Dioxide 21 L Total Protein 6.2 L Discharge - Discharge Clinical Impression: Vomiting Qualifiers: Vomiting type: unspecified Vomiting Intractability: non-intractable Nausea presence: unspecified Qualified Code(s): R11.10 - Vomiting, unspecified Condition: Stable Disposition: HOME, SELF-CARE Additional Instructions: Take the zofran if needed for nausea and vomiting, take the carafate along with your omeprazole to help resolve your symptoms. Please follow up with the gastroenterology referral for additional management. Return to the ED for any returned or worsening symptoms. Prescriptions: Ondansetron [Zofran Odt 4 mg Tablet] 1 - 2 tab PO Q4H PRN #15 tab.rapdis PRN Reason: For Nausea/Vomiting Sucralfate [Carafate 1 gm Tablet] 1 gm PO QID #20 tablet
[2017-07-07 20:26] LABS: ABSOLUTE EOSINOPHILS # (AUTO) 0.3 10^3/uL (0.0-0.6); ABSOLUTE LYMPHOCYTES (AUTO) 2.9 10^3/uL (0.5-4.7); ABSOLUTE MONOCYTES (AUTO) 0.5 10^3/uL (0.1-1.4); ABSOLUTE NEUT (AUTO) 3.4 10^3/uL (1.7-8.2); BASOPHILS % (AUTO) 0.7 % (0-2); EOSINOPHILS % (AUTO) 4.2 % (0-6); HEMATOCRIT 36.5 % (36.0-47.0); HGB HCT DIFFERENCE -0.5; LYMPHOCYTES % (AUTO) 40.1 % (13-45); MEAN CORPUSCULAR HEMOGLOBIN 26.1 pg (27.0-33.4); MEAN CORPUSCULAR HGB CONC 32.8 g/dL (32.0-36.0); MEAN CORPUSCULAR VOLUME 80 fl (80-97); RED BLOOD COUNT 4.59 10^6/uL (3.72-5.28); RED CELL DISTRIBUTION WIDTH 17.5 % (11.5-14.0); WHITE BLOOD COUNT 7.2 10^3/uL (4.0-10.5)
[2017-07-07 20:43] LABS: ALANINE AMINOTRANSFERASE 32 U/L (9-52); ALBUMIN 3.5 g/dL (3.5-5.0); ALKALINE PHOSPHATASE 110 U/L (38-126); ANION GAP 8 (5-19); ASPARTATE AMINO TRANSFERASE 22 U/L (14-36); BILIRUBIN,DIRECT 0.3 mg/dL (0.0-0.4); BILIRUBIN,TOTAL 0.3 mg/dL (0.2-1.3); BLOOD UREA NITROGEN 11 mg/dL (7-20); CALCIUM 9.6 mg/dL (8.4-10.2); CARBON DIOXIDE 21 mmol/L (22-30); CHLORIDE 110 mmol/L (98-107); CREATININE RESULT 0.69 mg/dL (0.52-1.25); GLUCOSE 85 mg/dL (75-110); LIPASE 115.2 U/L (23-300); POTASSIUM 4.3 mmol/L (3.6-5.0); SODIUM 139.3 mmol/L (137-145); TOTAL PROTEIN 6.2 g/dL (6.3-8.2)
[2017-07-07] MEDS ORDERED: MAG HYDROX/AL HYDROX/SIMETH SUSP 30 ML UDCUP PO ONE (20:49)
[2017-07-07] MEDS ORDERED: METOCLOPRAMIDE HCL ORAL SOLN 10 MG/10 ML UDCUP PO ONE (20:49)
[2017-07-07] MEDS ORDERED: LIDOCAINE 2% VISCOUS SOLN 20 ML UDCUP PO ONE (20:49)
[2017-07-07 21:18] VITALS: BP 137/89
[2017-07-07] MEDS ORDERED: ONDANSETRON ODT 4 MG TAB (6 TAB/DSPK) PO PRN (23:12)
== END 2017-07-08 | disposition home or self-care (01) ==
LOC: ER 18:32
DX: R11.10 Vomiting, unspecified (principal); R10.84 Generalized abdominal pain; Z88.3 Allergy status to other anti-infective agents
CPT/HCPCS: 99284; 96361; 96374; 86900; 86901; 36415; 86850; 83690; 85025; 80053; J3490; J2405; J7030

== ENCOUNTER 2018-10-12 16:37 | Emergency (ER) | payer OTHER, MEDICARE ==
[2018-10-12] MEDS ORDERED: NORMAL SALINE 1000 ML 1,000 ML IV ONE ×2 (17:12→18:47)
--- NOTE | 2018-10-12 17:15 | ER Document Report ---
ED General - General Chief Complaint: Low Blood Pressure Stated Complaint: BLOOD PRESSURE ISSUE Time Seen by Provider: 10/12/18 16:57 Mode of Arrival: Medic Information source: Patient Notes: This is a 53-year-old female with a history of hypertension, anxiety, PTSD who presents to the emergency room with generalized weakness and not feeling well over the past 3 weeks. Patient denies chest pain, shortness of breath, abdominal pain, nausea or vomiting, diarrhea. She does report low-grade fever subjectively. She denies any significant sick contacts. TRAVEL OUTSIDE OF THE [place] IN LAST 30 DAYS: No - HPI Onset: Last week Onset/Duration: Gradual Quality of pain: No pain Severity: None Pain Level: Denies Associated symptoms: denies: Chest pain, Fever, Shortness of breath Exacerbated by: Denies Relieved by: Denies Similar symptoms previously: No Recently seen / treated by doctor: No - Related Data Allergies/Adverse Reactions: cephalexin [From Keflex] Allergy (Verified 05/30/17 16:38) rash Cephalosporins Allergy (Verified 05/30/17 16:38) divalproex sodium [From Depakote] Allergy (Verified 05/30/17 16:38) hydrocodone [From Vicodin] Allergy (Verified 05/30/17 16:38) propranolol [From Inderal LA] Allergy (Verified 05/30/17 16:38) sumatriptan [From Imitrex] Allergy (Verified 05/30/17 16:38) Tachycardia vancomycin Allergy (Verified 05/30/17 16:38) rash verapamil Allergy (Verified 05/30/17 16:38) Past Medical History - General Information source: Patient - Social History Smoking Status: Current Every Day Smoker Cigarette use (# per day): Yes - Half a pack per day Chew tobacco use (# tins/day): No Frequency of alcohol use: None Drug Abuse: None Lives with: Family Family History: Reviewed & Not Pertinent Patient has suicidal ideation: No Patient has homicidal ideation: No - Past Medical History Cardiac Medical History: Reports: None Pulmonary Medical History: Reports: None EENT Medical History: Reports: None Neurological Medical History: Reports: Hx Migraine Endocrine Medical History: Reports: None Renal/ Medical History: Reports: None. Denies: Hx Peritoneal Dialysis Malignancy Medical History: Reports: None GI Medical History: Reports: None, Hx Gastroesophageal Reflux Disease Musculoskeletal Medical History: Reports None Skin Medical History: Reports None Psychiatric Medical History: Reports: Hx Anxiety, Hx Depression Past Surgical History: Reports: Hx Section, Hx Orthopedic Surgery - Immunizations Hx Diphtheria, Pertussis, Tetanus Vaccination: Yes Review of Systems - Review of Systems Constitutional: denies: Chills, Fever EENT: No symptoms reported Cardiovascular: See HPI, Dizziness, Lightheaded. denies: Chest pain, Palpitat ions, Heart racing Respiratory: No symptoms reported Gastrointestinal: No symptoms reported Genitourinary: No symptoms reported Female Genitourinary: No symptoms reported Musculoskeletal: No symptoms reported Skin: No symptoms reported Hematologic/Lymphatic: No symptoms reported Neurological/Psychological: No symptoms reported Physical Exam - Vital signs Vitals: Pulse BP 57 L 92/66 L 10/12/18 16:48 10/12/18 16:48 Notes: Physical exam: GENERAL: The 3-year-old female, alert and oriented x3, no acute distress HEAD: Atraumatic, normocephalic. EYES: Pupils equal round and reactive to light, extraocular movements intact, sclera anicteric, conjunctiva are normal. ENT: TMs normal, nares patent, oropharynx clear without exudates. Moist mucous membranes. NECK: Normal range of motion, supple without obvious mass or JVD. LUNGS: Breath sounds clear to auscultation bilaterally and equal. No wheezes rales or rhonchi. HEART: Regular rate and rhythm without murmurs, rubs or gallops. ABDOMEN: Soft, normoactive bowel sounds. No tenderness to palpation. No guarding, no rebound. No masses appreciated. EXTREMITIES: Normal range of motion, no pitting or edema. No clubbing or cya nosis. NEUROLOGICAL: Cranial nerves II through XII grossly intact. Normal speech, moving all extremities. PSYCH: Normal mood, normal affect. SKIN: Warm, Dry, normal turgor, no rashes or lesions noted. Course - Re-evaluation Re-evalutation: 10/13/18 00:06 Patient received IV fluids and was observed several hours in the ER. Her blood pressure came back nicely and she remained comfortable. I think she had been taking her clonidine for anxiety and had taken too much. In any event, she is run out and have advised her to follow-up with her primary care doctor. - Vital Signs Vital signs: Temp Pulse Resp BP Pulse Ox 57 L 18 144/80 H 98 10/12/18 16:48 10/12/18 20:01 10/12/18 20:01 10/12/18 20:01 - Laboratory Result Diagrams: 10/12/18 16:55 10/12/18 16:55 Laboratory results interpreted by me: 10/12/18 10/12/18 16:55 16:55 RDW 15.4 H Calcium 10.5 H AST 55 H - Diagnostic Test Radiology reviewed: Image reviewed, Reports reviewed - Chest X ray shows no infiltrates or effusions - EKG Interpretation by Me Rate: Bradycardia Rhythm: NSR - EKG shows sinus rhythm with a ventricular rate of 49, no acute ST- T wave changes Discharge - Discharge Clinical Impression: Orthostatic Hypertension Condition: Stable Disposition: HOME, SELF-CARE Additional Instructions: As we discussed, I do think that the low blood pressure and low heart rate that you exhibited tonight was probably from the clonidine. Since you have run out of that medicine, I recommend being very careful when starting it back up. I recommend you [facility]. Bring a copy of today's lab work with you when you go. Prescribed some Fioricet for the migraine headache. Prescriptions: Butalbital/Aspirin/Caffeine [Fiorinal 50-325-40 mg Capsule] 1 cap PO Q4 PRN #14 cap PRN Reason: Referrals: CHARMAINE QUICK PA [Primary Care Provider] - Follow up tomorrow
--- NOTE | 2018-10-12 17:49 | RADIOLOGY REPORT (SQ) ---
EXAM DESCRIPTION: CHEST SINGLE VIEW COMPLETED DATE/TIME: 10/12/2018 5:34 pm REASON FOR STUDY: weakness COMPARISON: 03/08/2017 EXAM PARAMETERS: NUMBER OF VIEWS: One view. TECHNIQUE: Single frontal radiographic view of the chest acquired. RADIATION DOSE: NA LIMITATIONS: None. FINDINGS: LUNGS AND PLEURA: No opacities, masses or pneumothorax. No pleural effusion. MEDIASTINUM AND HILAR STRUCTURES: No masses. Contour normal. HEART AND VASCULAR STRUCTURES: Heart normal in size. Normal vasculature. BONES: Old rib fractures on the right. HARDWARE: None in the chest. OTHER: No other significant finding. IMPRESSION: NO ACUTE RADIOGRAPHIC FINDING IN THE CHEST. TECHNICAL DOCUMENTATION: JOB ID: [id number] [employer]- All Rights Reserved Reading location - IP/workstation name: [email or web address]
[2018-10-12 18:16] LABS: ABSOLUTE EOSINOPHILS # (AUTO) 0.3 10^3/uL (0.0-0.6); ABSOLUTE LYMPHOCYTES (AUTO) 3.3 10^3/uL (0.5-4.7); ABSOLUTE MONOCYTES (AUTO) 0.5 10^3/uL (0.1-1.4); ABSOLUTE NEUT (AUTO) 6.2 10^3/uL (1.7-8.2); BASOPHILS % (AUTO) 0.4 % (0-2); EOSINOPHILS % (AUTO) 2.5 % (0-6); HEMATOCRIT 43.5 % (36.0-47.0); HEMOGLOBIN 14.5 g/dL (12.0-15.5); LYMPHOCYTES % (AUTO) 31.8 % (13-45); MEAN CORPUSCULAR HGB CONC 33.4 g/dL (32.0-36.0); MEAN CORPUSCULAR VOLUME 84 fl (80-97); MONOCYTES % (AUTO) 5.3 % (3-13); PLATELET COUNT 363 10^3/uL (150-450); RED CELL DISTRIBUTION WIDTH 15.4 % (11.5-14.0); TOTAL CELLS COUNTED % (AUTO) 100 %; WHITE BLOOD COUNT 10.3 10^3/uL (4.0-10.5)
[2018-10-12 18:33] LABS: CREATINE KINASE MB 0.28 ng/mL (<4.55)
[2018-10-12 18:37] LABS: TROPONIN I < 0.012 ng/mL
[2018-10-12 18:41] LABS: ALANINE AMINOTRANSFERASE 14 U/L (9-52); ALKALINE PHOSPHATASE 91 U/L (38-126); ANION GAP 9 (5-19); ASPARTATE AMINO TRANSFERASE 55 U/L (14-36); BILIRUBIN,DIRECT 0.4 mg/dL (0.0-0.4); BILIRUBIN,TOTAL 0.6 mg/dL (0.2-1.3); BLOOD UREA NITROGEN 10 mg/dL (7-20); CALCIUM 10.5 mg/dL (8.4-10.2); CARBON DIOXIDE 27 mmol/L (22-30); CHLORIDE 102 mmol/L (98-107); CREATINE KINASE 36 U/L (30-135); GLUCOSE 89 mg/dL (75-110); POTASSIUM 4.7 mmol/L (3.6-5.0); SODIUM 138.1 mmol/L (137-145); TOTAL PROTEIN 8.2 g/dL (6.3-8.2)
[2018-10-12 18:41] LABS: A TYPE INFLUENZA AG NEGATIVE (NEGATIVE); B INFLUENZA AG NEGATIVE (NEGATIVE)
[2018-10-12 20:06] VITALS: BP 144/80
== END 2018-10-12 20:32 | disposition home or self-care (01) ==
LOC: ER 16:37
DX: I95.1 Orthostatic hypotension (principal); R42 Dizziness and giddiness; Z88.6 Allergy status to analgesic agent; Z88.3 Allergy status to other anti-infective agents
CPT/HCPCS: 99285; 96360; 96361; 36415; 82553; 82550; 85025; 80053; 84484; 87804; 71045; J7030

== ENCOUNTER 2018-10-19 17:32 | Emergency (ER) | payer OTHER, MEDICARE ==
[2018-10-19] MEDS ORDERED: NORMAL SALINE 1000 ML 1,000 ML IV ONE (19:44)
[2018-10-19] MEDS ORDERED: ONDANSETRON HCL INJ/PF 4 MG/2 ML SDV IV ONE (19:46)
--- NOTE | 2018-10-19 19:48 | ER Document Report ---
ED Medical Screen (RME) - General Chief Complaint: Headache Stated Complaint: NAUSEA,DIZZY,HEADACHE Time Seen by Provider: 10/19/18 18:24 Mode of Arrival: Ambulatory Information source: Patient Notes: This is a 53-year-old female with a history of PTSD, hypertension who presented to the emergency room with nausea, vomiting, migraine headache for the past week. Patient was here and evaluated for weakness in approximately a week ago at which time she was hypotensive. She was treated with IV fluids and had symptomatic relief as well as return of her blood pressure. She is not followed up at the [facility]. TRAVEL OUTSIDE OF THE [place] IN LAST 30 DAYS: No - Related Data Allergies/Adverse Reactions: cephalexin [From Keflex] Allergy (Verified 10/19/18 17:34) rash Cephalosporins Allergy (Verified 10/19/18 17:34) divalproex sodium [From Depakote] Allergy (Verified 10/19/18 17:34) hydrocodone [From Vicodin] Allergy (Verified 10/19/18 17:34) propranolol [From Inderal LA] Allergy (Verified 10/19/18 17:34) sumatriptan [From Imitrex] Allergy (Verified 10/19/18 17:34) Tachycardia vancomycin Allergy (Verified 10/19/18 17:34) rash verapamil Allergy (Verified 10/19/18 17:34) Past Medical History - Social History Frequency of alcohol use: None Drug Abuse: None Neurological Medical History: Reports: Hx Migraine Renal/ Medical History: Denies: Hx Peritoneal Dialysis GI Medical History: Reports: Hx Gastroesophageal Reflux Disease Psychiatric Medical History: Reports: Hx Anxiety, Hx Depression - PTSD/anxiety Past Surgical History: Reports: Hx Section, Hx Orthopedic Surgery - Immunizations Hx Diphtheria, Pertussis, Tetanus Vaccination: Yes Physical Exam - Vital signs Vitals: Temp Pulse Resp BP Pulse Ox 98.2 F 148 H 18 141/110 H 99 10/19/18 17:52 10/19/18 17:52 10/19/18 17:52 10/19/18 17:52 10/19/18 17:52 Course - Vital Signs Vital signs: Temp Pulse Resp BP Pulse Ox 98.2 F 159 H 18 138/109 H 98 10/19/18 17:52 10/19/18 19:34 10/19/18 17:52 10/19/18 19:34 10/19/18 19:34 Doctor's Discharge - Discharge Referrals: CHARMAINE QUICK PA [Primary Care Provider] - Follow up as needed
--- NOTE | 2018-10-19 20:30 | RADIOLOGY REPORT (SQ) ---
EXAM DESCRIPTION: XR CHEST 1 VIEW COMPLETED DATE/TME: 10/19/2018 19:44 CLINICAL HISTORY: 53 years, Female, weakness Findings: The heart is not enlarged. Lungs are clear. No pneumothorax. No pleural effusion. IMPRESSION: No acute disease.
--- NOTE | 2018-10-19 20:39 | ER Document Report ---
ED General <RUBIO KOEHLER - Last Filed: 10/20/18 00:00> - General Mode of Arrival: Ambulatory Information source: Patient TRAVEL OUTSIDE OF THE [place] IN LAST 30 DAYS: No <ZACARIAS COLE - Last Filed: 10/20/18 02:09> - General Chief Complaint: Headache Stated Complaint: NAUSEA,DIZZY,HEADACHE Time Seen by Provider: 10/19/18 18:24 Notes: Patient is a 53-year-old female with hypertension, anxiety, PTSD who presents to the emergency department complaining of nausea and vomiting. Patient states that her nausea was onset approximately 3 weeks ago and she began to vomit last night which lasted until approximately 0530 this morning. Patient states she has been unable to tolerate p.o. She also complains of dizziness and diaphoresis. Of significance, patient was seen in this emergency department department on 10/03 complaining of flulike symptoms and was found to be hypotensive and was discharged home after being under observation and receiving IV fluids. (ZACARIAS COLE) - Related Data Allergies/Adverse Reactions: cephalexin [From Keflex] Allergy (Verified 10/19/18 17:34) rash Cephalosporins Allergy (Verified 10/19/18 17:34) divalproex sodium [From Depakote] Allergy (Verified 10/19/18 17:34) hydrocodone [From Vicodin] Allergy (Verified 10/19/18 17:34) propranolol [From Inderal [place]] Allergy (Verified 10/19/18 17:34) sumatriptan [From Imitrex] Allergy (Verified 10/19/18 17:34) Tachycardia vancomycin Allergy (Verified 10/19/18 17:34) rash verapamil Allergy (Verified 10/19/18 17:34) Past Medical History - General Information source: Patient - Social History Smoking Status: Current Every Day Smoker Frequency of alcohol use: None Drug Abuse: None Family History: Reviewed & Not Pertinent Patient has suicidal ideation: No Patient has homicidal ideation: No Neurological Medical History: Reports: Hx Migraine GI Medical History: Reports: Hx Gastroesophageal Reflux Disease Psychiatric Medical History: Reports: Hx Anxiety, Hx Depression - PTSD/anxiety Past Surgical History: Reports: Hx Section, Hx Orthopedic Surgery - Immunizations Hx Diphtheria, Pertussis, Tetanus Vaccination: Yes <ZACARIAS COLE - Last Filed: 10/20/18 02:09> Review of Systems - Review of Systems Constitutional: See HPI, Diaphoresis EENT: No symptoms reported Cardiovascular: See HPI, Dizziness Respiratory: No symptoms reported Gastrointestinal: See HPI, Nausea, Vomiting Genitourinary: No symptoms reported Female Genitourinary: No symptoms reported Musculoskeletal: No symptoms reported Skin: No symptoms reported Hematologic/Lymphatic: No symptoms reported Neurological/Psychological: No symptoms reported -: Yes All other systems reviewed and negative <ZACARIAS COLE - Last Filed: 10/20/18 02:09> Physical Exam <ZACARIAS COLE - Last Filed: 10/20/18 02:09> - Vital signs Vitals: Temp Pulse Resp BP Pulse Ox 98.2 F 148 H 18 141/110 H 99 10/19/18 17:52 10/19/18 17:52 10/19/18 17:52 10/19/18 17:52 10/19/18 17:52 - Notes Notes: GENERAL: Alert, interacts well. No acute distress. HEAD: Normocephalic, atraumatic. EYES: Pupils equal, round, and reactive to light. Extraocular movements intact. ENT: Oral mucosa moist, tongue midline. NECK: Full range of motion. Supple. Trachea midline. LUNGS: Clear to auscultation bilaterally, no wheezes, rales, or rhonchi. No respiratory distress. HEART: Tachycardic with a rate of approximately 130 bpm.. No murmurs, gallops, or rubs. ABDOMEN: Soft, non-tender. Non-distended. Bowel sounds present in all 4 quadrants. EXTREMITIES: Moves all 4 extremities spontaneously. NEUROLOGICAL: Alert and oriented x3. Normal speech. PSYCH: Normal affect, normal mood. SKIN: Warm, dry, normal turgor. No rashes or lesions noted. (ZACARIAS COLE) Course - Laboratory Result Diagrams: 10/19/18 20:30 10/19/18 20:30 <RUBIO KOEHLER - Last Filed: 10/20/18 00:00> - Laboratory Result Diagrams: 10/19/18 20:30 10/19/18 20:30 <ZACARIAS COLE - Last Filed: 10/20/18 02:09> - Re-evaluation Re-evalutation: 10/19/18 22:57 Patient states her headache is better but it is still present. She is on her second liter of IV fluid. 10/20/18 00:00 This time the patient states she feels much better and is ready to go home. Her heart rate is 102 at this time. It was 148 when she first checked in. (RUBIO KOEHLER) - Vital Signs Vital signs: Temp Pulse Resp BP Pulse Ox 98.2 F 159 H 16 161/107 H 97 10/19/18 17:52 10/19/18 19:34 10/20/18 00:29 10/20/18 00:29 10/20/18 00:29 - Laboratory Laboratory results interpreted by me: 10/19/18 10/19/18 20:30 20:30 WBC 15.4 H RBC 5.44 H RDW 16.3 H Absolute Neutrophils 9.9 H Chloride 109 H Calcium 10.8 H Albumin 5.3 H Discharge <RUBIO KOEHLER - Last Filed: 10/20/18 00:00> <ZACARIAS COLE - Last Filed: 10/20/18 02:09> - Discharge Clinical Impression: Tachycardia, Dehydration Headache Qualifiers: Headache type: unspecified Headache chronicity pattern: unspecified pattern Intractability: not intractable Qualified Code(s): R51 - Headache Nausea and vomiting Qualifiers: Vomiting type: unspecified Vomiting Intractability: non-intractable Qualified Code(s): R11.2 - Nausea with vomiting, unspecified Condition: Stable Disposition: HOME, SELF-CARE Additional Instructions: Viral Syndrome: The physician has diagnosed a viral infection. Viruses not only cause "colds," but can cause many different symptoms including generalized aching, fever, headache, cough, diarrhea, nausea, vomiting, and fatigue. The treatment, for the most part, is simply relief of symptoms. This means that antibiotics are usually not given. Rest, fluids, pain medications and, occasionally, medication for the specific symptoms that are most bothersome will be prescribed. Use good handwashing to avoid passing the virus to others. Shared toys should be cleaned with disinfectant. Clean the toilets, sinks, and counter surfaces in bathrooms. Launder clothing in hot water. Contact the physician if you develop any new or unusual symptoms such as severe headache, stiff neck, high fever, chest pain, productive cough, or shortness of breath. You should be rechecked if you don't see marked improvement within seven to 10 days. You have probably had a viral syndrome causing your symptoms of headache with nausea, vomiting, dizziness and sweats. Take the medication as dispensed for nausea if needed. Drink cool clear liquids this evening. Take your regular medications. Take Tylenol for headache if needed. Follow-up with your primary care provider tomorrow if not improving. RETURN TO THE EMERGENCY ROOM IF ANY NEW OR WORSENING SYMPTOMS. Referrals: CHARMAINE QUICK PA [Primary Care Provider] - Follow up as needed Scribe Attestation: 10/19/18 20:54 I personally performed the services described in the documentation, reviewed and edited the documentation which was dictated to the scribe in my presence, and it accurately records my words and actions. (RUBIO KOEHLER) Scribe Documentation - Scribe Written by Colby:: Colby Meek, 10/19/2018 20:41 acting as scribe for :: Michelle <ZACARIAS COLE - Last Filed: 10/20/18 02:09>
[2018-10-19 20:42] LABS: ABSOLUTE BASOPHILS # (AUTO) 0.1 10^3/uL (0.0-0.2); ABSOLUTE EOSINOPHILS # (AUTO) 0.2 10^3/uL (0.0-0.6); ABSOLUTE MONOCYTES (AUTO) 1.2 10^3/uL (0.1-1.4); ABSOLUTE NEUT (AUTO) 9.9 10^3/uL (1.7-8.2); BASOPHILS % (AUTO) 0.7 % (0-2); EOSINOPHILS % (AUTO) 1.2 % (0-6); HEMATOCRIT 45.3 % (36.0-47.0); HEMOGLOBIN 15.3 g/dL (12.0-15.5); LYMPHOCYTES % (AUTO) 25.8 % (13-45); MEAN CORPUSCULAR HGB CONC 33.7 g/dL (32.0-36.0); MEAN CORPUSCULAR VOLUME 83 fl (80-97); MONOCYTES % (AUTO) 7.8 % (3-13); PLATELET COUNT 406 10^3/uL (150-450); RED BLOOD COUNT 5.44 10^6/uL (3.72-5.28); RED CELL DISTRIBUTION WIDTH 16.3 % (11.5-14.0); SEGMENTED NEUTROPHILS % (AUTO) 64.5 % (42-78); TOTAL CELLS COUNTED % (AUTO) 100 %; WHITE BLOOD COUNT 15.4 10^3/uL (4.0-10.5)
[2018-10-19] MEDS ORDERED: FENTANYL CITRATE INJ/PF 100 MCG/2 ML AMPUL IV ONE (20:50)
[2018-10-19 20:54] LABS: ALANINE AMINOTRANSFERASE 22 U/L (9-52); ALBUMIN 5.3 g/dL (3.5-5.0); ALKALINE PHOSPHATASE 97 U/L (38-126); ANION GAP 11 (5-19); ASPARTATE AMINO TRANSFERASE 17 U/L (14-36); BILIRUBIN,DIRECT 0.2 mg/dL (0.0-0.4); BILIRUBIN,TOTAL 0.4 mg/dL (0.2-1.3); BLOOD UREA NITROGEN 19 mg/dL (7-20); CALCIUM 10.8 mg/dL (8.4-10.2); CARBON DIOXIDE 22 mmol/L (22-30); CHLORIDE 109 mmol/L (98-107); CREATINE KINASE 47 U/L (30-135); GLUCOSE 108 mg/dL (75-110); POTASSIUM 4.5 mmol/L (3.6-5.0); SODIUM 141.9 mmol/L (137-145); TOTAL PROTEIN 8.1 g/dL (6.3-8.2)
[2018-10-19 21:06] LABS: CREATINE KINASE MB 0.94 ng/mL (<4.55); TROPONIN I < 0.012 ng/mL
[2018-10-19 21:11] LABS: FREE T3 3.68 pg/mL (2.77-5.27); FREE T4 (FREE THYROXINE) 1.15 ng/dL (0.78-2.19)
[2018-10-19 21:25] LABS: THYROID STIMULATING HORMONE 0.63 uIU/mL (0.47-4.68)
[2018-10-19] MEDS ORDERED: DEXTROSE 5%-NORMAL SALINE 1,000 ML IV ONE (22:13)
[2018-10-19] MEDS ORDERED: KETOROLAC TROMETHAMINE INJ/PF 30 MG/1 ML SDV IV ONE (22:56)
--- NOTE | 2018-10-19 23:04 | EKG REPORT ---
SEVERITY:- BORDERLINE ECG - SINUS TACHYCARDIA PROBABLE LEFT ATRIAL ABNORMALITY : Confirmed by: Jamari Bennett 19-Oct-2018 23:03:48
[2018-10-20] MEDS ORDERED: ONDANSETRON ODT 4 MG TAB (6 TAB/ER DISP) PO PRN (00:14)
[2018-10-20 00:31] VITALS: BP 161/107
== END 2018-10-20 00:35 | disposition home or self-care (01) ==
LOC: ER 17:32
DX: R00.0 Tachycardia, unspecified (principal); E86.0 Dehydration; R51 Headache; R11.2 Nausea with vomiting, unspecified; R42 Dizziness and giddiness; R61 Generalized hyperhidrosis; F17.200 Nicotine dependence, unspecified, uncomplicated; I10 Essential (primary) hypertension; F41.9 Anxiety disorder, unspecified; F43.10 Post-traumatic stress disorder, unspecified; Z88.3 Allergy status to other anti-infective agents
CPT/HCPCS: 93005; 99284; 96361; 96374; 96375; 36415; 84439; 82553; 82550; 84443; 85025; 80053; 84484; 84481; 71045; 93010; J3010; J1885; J2405; J7030